=== PATIENT | female | born 1955 | race Caucasian/White ===

== ENCOUNTER 2022-09-26 07:15 | Day surgery (SDC) | payer MEDICARE, MEDICAID ==
[~2022-09-26] VITALS: Ht 162.6 cm; Wt 61.3 kg
[~2022-09-26 07:15] MED LIST: SODIUM CHLORIDE 0.9% 1,000 ML IV ONE; SODIUM CHLORIDE 0.9% 1,000 ML ONE
[2022-09-26 07:34] LABS: COVID AG,FIA SOURCE NASAL SWAB
[2022-09-26] MEDS ORDERED: LIDOCAINE/PF 2% 5 ML VIAL IM ONE (12:00)
[2022-09-26] MEDS ORDERED: PROPOFOL 1% 20 ML VIAL IVP ONE (12:00)
== END 2022-09-26 11:30 | disposition home or self-care (01) ==
LOC: SURGERY 07:15
PROVIDERS: ATTEND Surgery
DX: K57.30 Diverticulosis of large intestine without perforation or abscess without bleeding (principal); K64.0 First degree hemorrhoids; K63.89 Other specified diseases of intestine; Z98.890 Other specified postprocedural states; Z20.822 Contact with and (suspected) exposure to COVID-19
CPT/HCPCS: 45378; 87426; C9803; J2704; J3490; J7030